=== PATIENT | male | born 1955 | race Caucasian/White ===

== ENCOUNTER → 2018-04-27 | Outpatient (CLI) | payer BC ==
[~2018-04-27] VITALS: Ht 182.9 cm; Wt 120.4 kg
[~2018-04-27] MED LIST: ASPIRIN E.C. 8181 MG PO; COREG12.5 MG PO; CYMBALTA 60MG60 MG PO; LIPITOR 80MG80 MG PO; MOTRIN 800800 MG/TAB PO; NORCO 325 MG-101 TAB PO; PRINIVIL20 MG PO
[2018-04-27 11:56] VITALS: BP 141/78; PULSE 54
[2018-04-27 13:45] VITALS: BP 145/76; PULSE 64
[2018-04-27 14:00] VITALS: BP 140/73; PULSE 61
[2018-04-27 14:20] VITALS: BP 143/70; PULSE 67
== END ==
LOC: COL.RAD 10:58
DX: M48.061 Spinal stenosis, lumbar region without neurogenic claudication (principal); M51.16 Intervertebral disc disorders with radiculopathy, lumbar region
CPT/HCPCS: A9585; G9654; J2250; J2704; J3010; J7120